=== PATIENT | female | born 1960 | race Caucasian/White ===

== ENCOUNTER 2018-11-10 18:08 | Emergency (ER) | payer BC ==
--- NOTE | 2018-11-10 18:11 | ER Report ---
History and Physical Time Seen By MD: 18:07 HPI/ROS CHIEF COMPLAINT: Thrown from horse HISTORY OF PRESENT ILLNESS: 58-year-old female without significant past medical history except for some allergies which she's been taking Benadryl for. Patient was riding today when she was thrown from a horse foreword over the left side, landing on her left shoulder. She is complaining of left shoulder pain and deformity. She is also complaining of left posterior rib pain. Patient denies head impact, neck pain, shortness of breath. She does note increased pain with deep inspiration. She has movement of extremities. She ambulated into the ER. She complains of no hip or abdominal pain. Patient notes abrasion on her left flank. REVIEW OF SYSTEMS: Respiratory: No cough, no dyspnea. Cardiovascular: No chest pain, no palpitations. Gastrointestinal: No vomiting, no abdominal pain. Musculoskeletal: No back pain. Allergies: Coded Allergies: No Known Drug Allergies (Unverified , 11/10/18) Home Meds Active Scripts Ondansetron 4 Mg Odt (ONDANSETRON 4 MG ODT) 4 Mg Tab.rapdis, 4 MG PO Q6H PRN for NAUSEA/VOMITING, #12 TAB Prov:ASHLI CHÁVEZ DO 11/10/18 Hydrocodone Bit/Acetaminophen (HYDROCODON-ACETAMINOPHEN 5-325) 1 Each Tablet, 1 EACH PO Q4-6H PRN for PAIN, #15 TAKE ONE TABLET BY MOUTH EVERY 4-6 HOURS NEEDED FOR PAIN Prov:ASHLI CHÁVEZ DO 11/10/18 Reviewed Nurses Notes: Yes Old Medical Records Reviewed: Yes Constitutional Vital Sign - Last 24 Hours 11/10/18 11/10/18 11/10/18 11/10/18 18:18 19:00 19:02 20:37 Temp 98.0 98.0 Pulse 74 78 84 Resp 18 18 18 B/P (MAP) 168/80 (109) 128/70 (89) Pulse Ox 96 94 99 O2 Delivery Room Air Nasal Cannula Room Air O2 Flow Rate 2 2.0 Intake and Output 11/10/18 11/10/18 11/11/18 15:04 23:04 07:04 Intake Total 1000 ml Balance 1000 ml Physical Exam General Appearance: The patient is alert, has no immediate need for airway protection and no current signs of toxicity. Vital signs stable, afebrile, pulse ox normal, palpation of the head and neck reveal no tenderness or trauma HEENT: Pupils equal and round no injection. TMs normal, oropharynx without redness or exudate. No dental trauma Respiratory: Chest is non tender, lungs are clear to auscultation. Cardiac: regular rate and rhythm Gastrointestinal: Abdomen is soft and non tender, no masses, bowel sounds normal. Musculoskeletal: Neck: Neck is supple and non tender. Extremities have full range of motion and are non tender., There is obvious deformity of the left shoulder with elevation of the clavicle with likely fracture, question quoc dislocation, distal neurovascular functions intact. The wrist and elbow are unremarkable on palpation Skin: No rashes or lesions. Neuro: Alert and oriented 3, cranial nerves II through XII intact motor 5/5 all groups, sensory intact to light touch 4 DIFFERENTIAL DIAGNOSIS: After history and physical exam differential diagnosis was considered for trauma in an course accident including intracranial, spinal, intrathoracic and intra-abdominal injuries. Medical Decision Making Data Points Result Diagram: 11/10/18 1840 11/10/18 1840 Laboratory Hematology Test 11/10/18 18:40 White Blood Count 10.6 k/uL (4.5-11.0) Red Blood Count 4.70 M/uL (4.17-5.56) Hemoglobin 14.2 g/dL (12.0-16.0) Hematocrit 42.5 % (34.0-47.0) Mean Corpuscular Volume 90.4 fL (80.0-96.0) Mean Corpuscular Hemoglobin 30.2 pg (26.0-33.0) Mean Corpuscular Hemoglobin Concent 33.4 g/dL (32.0-36.0) Red Cell Distribution Width 14.2 % (11.5-14.5) Platelet Count 286 K/uL (150-450) Mean Platelet Volume 8.1 fL (7.2-11.1) Neutrophils (%) (Auto) 83.1 % (39.4-72.5) H Lymphocytes (%) (Auto) 8.9 % (17.6-49.6) L Monocytes (%) (Auto) 6.3 % (4.1-12.4) Eosinophils (%) (Auto) 0.5 % (0.4-6.7) Basophils (%) (Auto) 1.2 % (0.3-1.4) Nucleated RBC Relative Count (auto) 0.0 /100WBC Neutrophils # (Auto) 8.8 K/uL (2.0-7.4) H Lymphocytes # (Auto) 0.9 K/uL (1.3-3.6) L Monocytes # (Auto) 0.7 K/uL (0.3-1.0) Eosinophils # (Auto) 0.1 K/uL (0.0-0.5) Basophils # (Auto) 0.1 K/uL (0.0-0.1) Nucleated RBC Absolute Count (auto) 0.00 K/uL Chemistry Test 11/10/18 18:40 Sodium Level 139 mmol/L (137-145) Potassium Level 4.0 mmol/L (3.5-5.0) Chloride Level 102 mmol/L (98-107) Carbon Dioxide Level 30 mmol/L (22-31) Blood Urea Nitrogen 21 mg/dl (7-18) Creatinine 0.80 mg/dl (0.52-1.04) Glomerular Filtration Rate Calc > 60.0 Random Glucose 115 mg/dl (75-110) Lactate 1.2 mmol/L (0.7-2.1) Calcium Level 9.0 mg/dl (8.4-10.2) Total Bilirubin 0.3 mg/dl (0.2-1.3) Aspartate Amino Transf (AST/SGOT) 37 U/L (0-35) Alanine Aminotransferase (ALT/SGPT) 47 U/L (0-56) Alkaline Phosphatase 76 U/L (0-126) Total Protein 7.1 g/dl (6.3-8.2) Albumin 4.1 g/dl (3.5-5.0) Amylase Level 62 U/L (0-110) Lipase 195 U/L (23-300) Coagulation Test 11/10/18 18:40 Prothrombin Time 13.0 seconds (12.0-14.4) Prothromb Time International Ratio 0.98 Activated Partial Thromboplast Time 30 seconds (23-35) Toxicology Test 11/10/18 18:40 Serum Alcohol < 10 mg/dl Urinalysis Test 11/10/18 19:52 Urine Color Yellow Urine Clarity Clear Urine pH 5.0 pH (4.8-9.5) Urine Specific [place] 1.032 Urine Protein Negative mg/dL (NEGATIVE) Urine Glucose (UA) Negative mg/dL (NEGATIVE) Urine Ketones Negative mg/dL (NEGATIVE) Urine Blood Negative (NEGATIVE) Urine Nitrite Negative (NEGATIVE) Urine Bilirubin Negative (NEGATIVE) Urine Urobilinogen Negative mg/dL (0.2-1.9) Urine Leukocyte Esterase Negative (NEGATIVE) Urine RBC <1 /HPF (0-2/HPF) Urine WBC 1 /HPF (0-5/HPF) Urine Squamous Epithelial Cells Few /LPF (</=FEW) Urine Bacteria Negative /HPF (NONE-FEW) Urine Mucus None /HPF (NONE-FEW) EKG/Imaging Imaging X-ray: Single view portable chest x-ray was obtained. I viewed the images myself on the PACS system. My interpretation of the images is: No pneumothorax, no fractured ribs, normal mediastinum, comminuted angulated distal left clavicle fracture noted. The radiologist interpretation had no clinically significant variation from this interpretation. X-ray: Left shoulder, 2 views was obtained. I viewed the images myself on the PACS system. My interpretation of the images is: Comminuted angulated distal left clavicle fracture, no appearance of dislocation. The radiologist interpretation had no clinically significant variation from this interpretation. Results: CT scan of the chest, abdomen and pelvis with IV contrast was obtained. The results of the study are COMPARISON: Left Shoulder radiograph same date FINDINGS: CHEST: Lungs/Pleura: Negative. No evidence of pneumothorax Mediastinum/lymph nodes: Negative. Heart/vessels: Negative. Bones/soft tissues: The left clavicle shaft fracture as above the [id number]. Several bone fragments from the comminuted fracture can be seen in the first image of this exam. There are no rib fractures in the thoracic spine is intact. ABDOMEN AND PELVIS: Hepatobiliary: Mild biliary ductal dilatation is likely physiologic related to the remote cholecystectomy. Several tiny subcentimeter hepatic cyst noted. No evidence of acute liver injury. Spleen: Spleen is intact. Pancreas: Negative. Adrenals: Negative. Kidneys ureters and bladder : Subcentimeter right renal cyst noted. Kidneys otherwise normal. Urinary bladder unremarkable. Genitalia: Negative. GI: Negative. Vessels/spaces/nodes: Negative. Bones/soft tissues: Negative. Additional findings: There is mild edema is seen in the subcutaneous fat in the left inferior flank (image [id number] series 2). IMPRESSION: Left clavicle fracture. Mild body wall contusion in the left posterior flank. Chest, abdomen, and pelvis, otherwise unremarkable. The study was read by the radiologist. I viewed the images myself on the PACS system. ED Course/Re-evaluation Clinical Indication for ER IV: Hydration, IV Access ED Course Patient was admitted to an examination room. H&P was done. The differential diagnoses was considered. On clinical examination. Patient has significant deformity of her left shoulder. She has significant pain. She also is complaining of pain down her left ribs. Patient denies head or neck impact. She denies LOC. Primary and 2nd degree surveys were performed. Peripheral IV was established. Patient was medicated with Zofran and fentanyl. Portal chest x-ray shows comminuted fracture of the distal left clavicle. Patient subsequent head CT scan chest, abdomen and pelvis with contrast, which was unremarkable for any significant other findings. Patient was placed in a sling. She is advised to follow-up with orthopedics within 5 days. Prescription for Lortab was provided for pain relief. She is also given Zofran to control nausea. 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 horse in noncollision accident, initial encounter Additional Impressions: Closed left clavicular fracture Contusion of flank and back Condition: Improved Disposition: HOME OR SELF-CARE New Scripts Ondansetron 4 Mg Odt (ONDANSETRON 4 MG ODT) 4 Mg Tab.rapdis 4 MG PO Q6H PRN for NAUSEA/VOMITING, #12 TAB Prov: ASHLI CHÁVEZ DO 11/10/18 Hydrocodone Bit/Acetaminophen (HYDROCODON-ACETAMINOPHEN 5-325) 1 Each Tablet 1 EACH PO Q4-6H PRN for PAIN, #15 TAKE ONE TABLET BY MOUTH EVERY 4-6 HOURS NEEDED FOR PAIN Prov: ASHLI CHÁVEZ DO 11/10/18 Patient Instructions: Clavicle Fracture (ED), Contusion in Adults (ED) Additional Instructions: Take ibuprofen 200 mg 2-3 tablets 3 times a day with food in her stomach Apply ice packs to the affected areas Use Zofran for nausea control Use hydrocodone for pain control Follow-up with orthopedics back in [place] upon returning home within one week Problem Qualifiers Additional Impressions: Closed left clavicular fracture Encounter type: initial encounter Clavicle location: lateral end Fracture alignment: displaced Qualified Codes: S42.032A - Displaced fracture of lateral end of left clavicle, initial encounter for closed fracture Contusion of flank and back Encounter type: initial encounter Qualified Codes: S30.1XXA - Contusion of abdominal wall, initial encounter ASHLI CHÁVEZ DO Nov 10, 2018 18:11
[2018-11-10] MEDS ORDERED: NS(*) 0.9% 1000 ML BAG 1,000 ML IV ONE (18:19)
[2018-11-10] MEDS ORDERED: DIPHTH/TETANUS/ACEL. PERTUSSIS IM ONE (18:20)
[2018-11-10] MEDS ORDERED: fentaNYL CITR 100 MCG/2 ML AMP IVP ONE (18:20)
[2018-11-10] MEDS ORDERED: ONDANSETRON 4 MG/2 ML VIAL IVP ONE (18:20)
[2018-11-10] MEDS ORDERED: IOPAMIDOL 76% 100 ML INFUS BTL 100 ML ONE (18:31)
[2018-11-10 19:02] LABS: PLATELET COUNT, AUTOMATED 286 K/uL (150-450)
[2018-11-10 19:08] LABS: INR 0.98
--- NOTE | 2018-11-10 19:29 | RADIOLOGY IMAGING REPORT ---
FACILITY: [facility] - [place] PATIENT NAME: Meryl Khan : 1960 MR: [id number] V: [id number] EXAM DATE: ORDERING PHYSICIAN: ASHLI CHÁVEZ TECHNOLOGIST: Location: [facility] - [place], [place] Patient: Meryl Khan : 1960 Visit/Account:[id number] Date of Sevice: 11/10/2018 CHEST SINGLE AP History: thrown from horse FINDINGS: Comparison studies: None. Tubes and Lines: None. Lungs and pleura: Well aerated. No evidence of focal consolidation or pleural effusions. Mediastinum: normal. Cardiac silhouette: normal . Osseous structures: There is a distal left clavicular fracture. See accompanying shoulder radiogra phs for further discussion. No displaced rib fractures are seen. IMPRESSION: Left clavicular fracture. See shoulder films. Chest otherwise normal. Report Dictated By: Heath Fuller MD at 11/10/2018 7:19 PM Report E-Signed By: Heath Fuller MD at 11/10/2018 7:21 PM WSN:[email or web address]
--- NOTE | 2018-11-10 19:31 | RADIOLOGY IMAGING REPORT ---
FACILITY: [facility] - [place] PATIENT NAME: Meryl Khan : 1960 MR: [id number] V: [id number] EXAM DATE: ORDERING PHYSICIAN: ASHLI CHÁVEZ TECHNOLOGIST: Location: [facility] Patient: Meryl Khan : 1960 Visit/Account:[id number] Date of Sevice: 11/10/2018 SHOULDER MIN 2 VIEWS LEFT HISTORY: thrown from horse Additional history: None COMPARISON: None. FINDINGS: There Is a mildly comminuted fracture in the left distal left clavicle. There is 30 degree apex supe rior angulation of the clavicular head and there is a clavicular bone fragment displaced 1 cm inferio rly. Remaining osseous structures appear intact. No definite evidence of a shoulder dislocation and remaining osseous structures appear intact. IMPRESSION: Mildly comminuted and angulated distal left clavicular fracture Report Dictated By: Heath Fuller MD at 11/10/2018 7:21 PM Report E-Signed By: Heath Fuller MD at 11/10/2018 7:24 PM WSN:[email or web address]
--- NOTE | 2018-11-10 20:01 | RADIOLOGY IMAGING REPORT ---
FACILITY: [facility] - [place] PATIENT NAME: Meryl Khan : 1960 MR: [id number] V: [id number] EXAM DATE: ORDERING PHYSICIAN: ASHLI CHÁVEZ TECHNOLOGIST: Location: [facility] [place] Patient: Meryl Khan : 1960 Visit/Account:[id number] Date of Sevice: 11/10/2018 CT CHEST ABDOMEN PELVIS W/CON HISTORY: Bucked off horse ADDITIONAL HISTORY: None. TECHNIQUE: Following administration of IV contrast axial images acquired through the chest abdomen a nd pelvis during the portal venous phase. Coronal and sagittal reformatting was also performed. One of the following dose optimization techniques was utilized in the performance of this exam: Automate d exposure control; adjustment of the mA and/or kV according to the patient's size; or use of an iter ative reconstruction technique. Specific details can be referenced in the facility's radiology CT e xam operational policy. CONTRAST: 75 mL Isovue-370 COMPARISON: Left Shoulder radiograph same date FINDINGS: CHEST: Lungs/Pleura: Negative. No evidence of pneumothorax Mediastinum/lymph nodes: Negative. Heart/vessels: Negative. Bones/soft tissues: The left clavicle shaft fracture as above the [id number]. Several bone fragm ents from the comminuted fracture can be seen in the first image of this exam. There are no rib frac tures in the thoracic spine is intact. ABDOMEN AND PELVIS: Hepatobiliary: Mild biliary ductal dilatation is likely physiologic related to the remote cholecyste ctomy. Several tiny subcentimeter hepatic cyst noted. No evidence of acute liver injury. Spleen: Spleen is intact. Pancreas: Negative. Adrenals: Negative. Kidneys ureters and bladder : Subcentimeter right renal cyst noted. Kidneys otherwise normal. Urina ry bladder unremarkable. Genitalia: Negative. GI: Negative. Vessels/spaces/nodes: Negative. Bones/soft tissues: Negative. Additional findings: There is mild edema is seen in the subcutaneous fat in the left inferior flank (image [id number] series 2). IMPRESSION: Left clavicle fracture. Mild body wall contusion in the left posterior flank. Chest, abdomen, and pelvis, otherwise unremarkable. Report Dictated By: Heath Fuller MD at 11/10/2018 7:44 PM Report E-Signed By: Heath Fuller MD at 11/10/2018 7:53 PM WSN:[email or web address]
[2018-11-10] MEDS ORDERED: ACET/HYDROC 5/325MG TH ER ONLY 2 TAB/BOTTLE PO ONE ×2 (20:15)
[2018-11-10] MEDS ORDERED: ONDANSETRON 4 MG ODT TH SL ONE (20:15)
[2018-11-10] MEDS ORDERED: LOR5/325 PO (20:19)
[2018-11-10] MEDS ORDERED: ONDA4TAB9 PO (20:19)
[2018-11-10 20:37] VITALS: BP 128/70
== END 2018-11-10 20:39 | disposition home or self-care (01) ==
LOC: ER 18:29
DX: S42.032A Displaced fracture of lateral end of left clavicle, initial encounter for closed fracture (principal); S30.1XXA Contusion of abdominal wall, initial encounter
CPT/HCPCS: 71045; 71260; 73030; 74177; 80320; 81001; 82150; 83605; 83690; 85025; 85610; 85730; 90471; 90715; 96361; 96374; 96375; 99284; A4565; J2405; J3010; J7030; Q9967; S0119; 82040; 82247; 82310; 82374; 82435; 82565; 82947; 84075; 84132; 84155; 84295; 84450; 84460; 84520